=== PATIENT | male | born 1960 | race Hispanic/Latino ===

== ENCOUNTER → 2018-11-09 | Day surgery (SDC) | payer OTHER ==
[~2018-11-09] MED LIST: AMLODIPINE BESY10 MG PO; ASPIR 8181 MG PO; LISINOPRIL-HCT1 EAC2 PO; MIDAZOLAM HCL 2 MG/2 ML VIAL ONE; PROPOFOL IV EMULSION 10 MG/ML 50 ML VIAL ONE
--- OUTSIDE RECORDS SUMMARY | 2018-11-09 05:33 | XMS REPORT | Clinical Summary ---
Author Author [facility] Organization [facility] Address Unknown Phone Unavailable Care Team Providers Care Relief Salesperson Name Role Phone Martina Umanzor MD PCP Allergies No Known Allergies Medications End Date Status Medication Sig Dispensed Refills Start Date Active aspirin (ASPIRIN) 81 mg Chew 81 mg by 0 chewable tablet mouth daily. Active polyethylene glycol Add lukewarm 4000 mL 0 (GOLYTELY) [id number] drinking 7 -5.86 gram oral water to the solutionIndications: fill rebecca (4 Occult blood positive liters) and stool shake. Drink as directed by your doctor.. Active BISOPROLOL FUMARATE-HCTZ TAKE ONE 90 tablet 3 2.5-6.25 mg per TABLET BY 8 tabletIndications: MOUTH ONCE Essential hypertension DAILY with goal blood pressure less than 140/90 Active latanoprost (XALATAN) Instill 1 2.5 mL 4 0.005 % ophthalmic Drop in each 8 solutionIndications: eye at Glaucoma, unspecified bedtime glaucoma type, nightly. unspecified laterality Active amLODIPine (NORVASC) 10 Take 1 tablet 90 tablet 1 mg tabletIndications: by mouth 8 Essential hypertension daily. with goal blood pressure less than 140/90 12/24/2017 Discontinued latanoprost (XALATAN) Instill 1 2.5 mL 4 0.005 % ophthalmic Drop in each 7 solution eye at bedtime nightly. 02/12/2018 Discontinued amLODIPine (NORVASC) 10 Take 1 tablet 90 tablet 1 mg tabletIndications: by mouth 8 Essential hypertension daily. 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; Age-related nuclear cataract, bilateral; Bilateral dry eyes; Refractive error 06/01/2018 Office Visit Ophthalmology Hossein Lopez MD Krause, Deborah D 05/11/2018 Nurse Only Ophthalmology Kita Garrido, OD Low-tension glaucoma of left eye, mild stage (Primary Dx); 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 03/03/2018 Office Visit Ophthalmology Ramses Martell III, MD Essential hypertension with goal blood pressure less than 140/90 02/12/2018 Refill Family Practice Kita Garrido, OD Glaucoma, unspecified glaucoma type, unspecified laterality (Primary Dx) 12/24/2017 Refill Ophthalmology Ashley Brush Appointment Related Questions (11/11/2017-PER PATIENT CANCEL APPT -PLAN 4-PATIENT WILL CALL BACK) 11/11/2017 Telephone after 11/08/2017 Immunizations Name Dates Previously Given Next Due Influenza Vaccine 08/12/2015, 07/28/2011 Tdap Tetanus, diphtheria, 12/27/2016 acellular pertussis Vaccine Family History Medical History Relation Name Comments Arthritis Brother Cancer Father liver/cirrhosis Diabetes Father Hypertension Father Cancer Mother pancreatic cancer Cataracts Mother Diabetes Mother Glaucoma Mother Heart Mother heart attack Hypertension Mother Relation Name Status Comments Brother Alive x 6 Brother Father cencer (Age 77) Maternal Grandfather Maternal Grandmother Mother cancer (Age 76) Paternal Grandfather Paternal Grandmother Sister Alive x 2 Son Alive x 3 Social History Date Tobacco Use Types Packs/Day Years Used Former Smoker Smokeless Tobacco: Former Quit: 07/28/2009 User Tobacco Cessation: Counseling Given: No Alcohol Use Drinks/Week oz/Week Comments Yes social Sex Assigned at Date Recorded Not on file Industry Job Start Date Occupation Not on file Not on file Not on file Travel End Travel History Travel Start No recent travel history available. Last Filed Vital Signs Not on file Plan of Treatment Health Maintenance Due Date Last Done Comments Colorectal Cancer Scrn 12/28/2017 12/28/2016, 10/27/2015 Annual (FIT/FOBT) Age 50 to 75 Results Not on fileafter 11/08/2017
--- OUTSIDE RECORDS SUMMARY | 2018-11-09 05:33 | XMS REPORT ---
[facility] Address Unknown Phone Unavailable Care Team Providers Care Operations Specialists Name Role Phone Unavailable Unavailable Problems This patient has no known problems. Allergies, Adverse Reactions, Alerts This patient has no known allergies or adverse reactions. Medications This patient has no known medications. Encounters Start Date/Time End Date/Time Encounter Type Admission Type Attending [facility] Care Department Encounter ID 2018-08-25 00:00:00 2018-08-25 00:00:00 Outpatient [facility] [id number] 2018-08-07 00:00:00 2018-08-07 00:00:00 Outpatient [facility] [id number] 2018-06-01 09:27:26 2018-06-01 09:27:26 Outpatient [facility] [id number] 2018-05-11 15:02:07 2018-05-11 15:02:07 Outpatient [facility] [id number] 2017-08-09 00:00:00 2017-08-09 00:00:00 Outpatient [facility] [id number] 2017-05-16 09:31:26 2017-05-16 09:31:26 Outpatient [facility] [id number] 2017-04-07 12:21:19 2017-04-07 12:21:19 Outpatient [facility] [id number] 2017-03-24 00:00:00 2017-03-24 00:00:00 Outpatient [facility] [id number] 2017-03-17 14:42:03 2017-03-17 14:42:03 Outpatient [facility] [id number] 2017-02-15 13:50:33 2017-02-15 13:50:33 Outpatient [facility] [id number] 2017-01-10 13:02:21 2017-01-10 13:02:21 Outpatient [facility] [id number] 2016-12-30 00:00:00 2016-12-30 00:00:00 Outpatient [facility] [id number] 2016-12-28 16:35:14 2016-12-28 16:35:14 Outpatient [facility] [id number] 2016-12-27 15:49:22 2016-12-27 15:49:22 Outpatient [facility] [id number] 2016-12-27 14:37:24 2016-12-27 14:37:24 Outpatient [facility] [id number] 08:56:15 2016 08:56:15 Outpatient [facility] [id number] 2016-12-15 14:14:50 2016-12-15 14:14:50 Outpatient [facility] [id number]
[2018-11-09 09:13] VITALS: BP 107/81
== END | disposition home or self-care (01) ==
LOC: OR 05:30
PROVIDERS: ATTEND Internal Medicine Gastroenterology
DX: Z12.11 Encounter for screening for malignant neoplasm of colon (principal); K57.30 Diverticulosis of large intestine without perforation or abscess without bleeding; K64.8 Other hemorrhoids; Z71.3 Dietary counseling and surveillance; E66.9 Obesity, unspecified; I10 Essential (primary) hypertension; Z01.810 Encounter for preprocedural cardiovascular examination; Z79.82 Long term (current) use of aspirin; Z68.38 Body mass index [BMI] 38.0-38.9, adult; Z87.891 Personal history of nicotine dependence; Z80.0 Family history of malignant neoplasm of digestive organs
CPT/HCPCS: 45378; 93005; J2250

== ENCOUNTER → 2025-02-04 | Outpatient (REF) | payer OTHER ==
[~2025-02-04] MED LIST changes: -MIDAZOLAM HCL 2 MG/2 ML VIAL ONE; -PROPOFOL IV EMULSION 10 MG/ML 50 ML VIAL ONE
== END ==
LOC: MRI 09:01
PROVIDERS: ATTEND Family Medicine
DX: S80.912A Unspecified superficial injury of left knee, initial encounter (principal); M21.262 Flexion deformity, left knee

== ENCOUNTER → 2025-03-07 | Day surgery (SDC) | payer OTHER ==
[2025-03-01 09:47] LABS: BASOPHILS % 0.6 % (0.0-1.0); EOSINOPHILS % 2.2 % (0.0-6.0); LYMPHOCYTES % 14.4 % (18.0-39.1); MONOCYTES % 7.2 % (4.4-11.3); NEUTROPHILS % 75.0 % (38.7-80.0); RED CELL DISTRIBUTION WIDTH 14.1 % (11.7-14.4)
[~2025-03-07] MED LIST changes: +ACETAMINOPHEN 1000 MG/100 ML 100 ML IV ONE; +DEXAMETHASONE SOD PHOS INJ 4 MG/ML SDV ONE; +ESMOLOL HCL 100MG/10ML 10 MG/ML VIAL ONE; +FENTANYL CITRATE/PF 100MCG/2 ML INJ ONE; +GARLIC OIL1000 MG PO; +GLYCOPYRROLATE INJ 0.2 MG/ML VIAL ONE; +HYDROCODONE/APAP 7.5MG-325MG 1 EA TAB ONE; +LIDOCAINE HCL 2% LOCAL INJ 5 ML SDV VIAL INJ ONE; +MIDAZOLAM HCL 2 MG/2 ML VIAL ONE; +OMEGA 3 1,0001 EACH PO; +ONDANSETRON HCL INJ 2MG/ML 2ML 2 MG/ML VIAL ONE; +PROPOFOL IV EMULSION 50 ML IV ONE; +SEVOFLURANE INHAL SOLN 250 ML PEN BTL ONE; +SUCCINYLCHOLINE CHLORIDE 20 MG/ML 10ML VIAL ONE; +VITAMIN E400 UNI1 PO; +ZESTRIL2.5 MG PO
[2025-03-07] MEDS: LACTATED RINGER'S 1,000 ML ONE (09:19)
[2025-03-07] MEDS: CEFAZOLIN SODIUM 2 GM ONE (09:20)
[2025-03-07] MEDS: FENTANYL CITRATE/PF 100MCG/2 ML INJ ONE (12:10)
[2025-03-07] MEDS: HYDROCODONE/APAP 7.5MG-325MG 1 EA TAB PO ONE (13:00)
[2025-03-07 13:25] VITALS: BP 133/79; PULSE 87; RESP 14; O2SAT 97
== END | disposition home or self-care (01) ==
LOC: OR 08:24
PROVIDERS: ATTEND Orthopaedic Surgery Adult Reconstructive Orthopaedic Surgery
DX: S83.222A Peripheral tear of medial meniscus, current injury, left knee, initial encounter (principal); S83.262A Peripheral tear of lateral meniscus, current injury, left knee, initial encounter; S83.512A Sprain of anterior cruciate ligament of left knee, initial encounter; M67.52 Plica syndrome, left knee; M94.262 Chondromalacia, left knee; I10 Essential (primary) hypertension; E66.01 Morbid (severe) obesity due to excess calories; X58.XXXA Exposure to other specified factors, initial encounter; Z01.810 Encounter for preprocedural cardiovascular examination; Z01.812 Encounter for preprocedural laboratory examination; Z79.82 Long term (current) use of aspirin; Z79.899 Other long term (current) drug therapy; Z68.37 Body mass index [BMI] 37.0-37.9, adult; Z71.3 Dietary counseling and surveillance; Z87.891 Personal history of nicotine dependence
CPT/HCPCS: 29880; 36415; 85025; 93005; J0131; J0330; J1100; J2003; J2250; J2405; J2704; J3010; J7121